=== PATIENT | male | born 2000 | race Caucasian/White ===

== ENCOUNTER 2020-12-26 19:28 | Emergency (ER) | payer OTHER ==
[2020-12-26] MEDS ORDERED: Ondansetron 4 MG Tab.DIS PO ONE (19:45)
[2020-12-26] MEDS ORDERED: Lactated Ringers 1,000 ML IV ONE (19:55)
[2020-12-26] MEDS ORDERED: Ketorolac 30 MG/ML SDV IVPUSH ONE (19:56)
--- NOTE | 2020-12-26 20:00 | EDM.PDOC ---
ED HPI GENERAL MEDICAL PROBLEM - General Chief Complaint: Gastrointestinal Problem Stated Complaint: VOMITING Time Seen by Provider: 12/26/20 19:45 Source of Information: Reports: Patient, RN. 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 Sx's began a couple hrs ago. Was sweating profusely in the heat today. Onset: Today, Gradual Onset Date: 12/26/20 Duration: Hour(s):, Getting Worse Location: Reports: Head, Generalized Quality: Reports: Ache (head) Severity: Moderate Improves with: Reports: None Worsens with: Reports: Other (time) Context: Reports: Other (environmental exposure) Associated Symptoms: Reports: Diaphoresis, Headaches, Nausea/Vomiting. 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 [Unable to Verify Home Med List] 12/26/20 [History] Past Medical History - Past Health History Medical/Surgical History: Denies Medical/Surgical History Social & Family History - Tobacco Use Tobacco Use Status *Q: Heavy Tobacco User Years of Tobacco use: 5 Packs/Tins Daily: 0.5 - Caffeine Use Caffeine Use: Reports: Soda - Recreational Drug Use Recreational Drug Use: No ED ROS GENERAL - Review of Systems Review Of Systems: See Below Constitutional: Reports: Malaise, Diaphoresis. Denies: Fever, Chills HEENT: Reports: No Symptoms Respiratory: Reports: No Symptoms Cardiovascular: Reports: Lightheadedness Endocrine: Reports: No Symptoms GI/Abdominal: Reports: Nausea, Vomiting. Denies: Diarrhea : Reports: No Symptoms Musculoskeletal: Reports: No Symptoms Skin: Reports: Diaphoresis Neurological: Reports: No Symptoms Psychiatric: Reports: No Symptoms ED EXAM, GI/ABD - Physical Exam Exam: See Below Exam Limited By: No Limitations General Appearance: Alert, WD/WN, No Apparent Distress Eyes: Right: Normal Appearance (Coloboma left pupil) Ears: Normal External Exam, Normal Canal, Hearing Grossly Normal, Normal TMs Nose: Normal Inspection, No Blood Throat/Mouth: Normal Inspection, Normal Lips, Normal Oropharynx, Normal Voice, No Airway Compromise Head: Atraumatic, Normocephalic Neck: Normal Inspection Respiratory/Chest: No Respiratory Distress, Lungs Clear, Normal Breath Sounds, No Accessory Muscle Use Cardiovascular: Regular Rate, Rhythm, No Edema GI/Abdominal Exam: Normal Bowel Sounds, Soft, Non-Tender, No Distention Back Exam: Normal Inspection Extremities: Normal Inspection Neurological: Alert, Oriented, CN II-XII Intact, Normal Cognition, No Motor/Sensory Deficits Psychiatric: Normal Affect, Normal Mood Skin Exam: Warm, Intact, Normal Color, No Rash, Diaphoretic. No: Dry Course - Vital Signs Last Recorded V/S: Last Vital Signs Temp 36.4 C 12/26/20 19:43 Pulse 72 12/26/20 19:43 Resp 20 12/26/20 19:43 BP 131/87 12/26/20 19:43 Pulse Ox 98 12/26/20 19:43 - Orders/Labs/Meds Orders: Active Orders 24 hr Category Date Time Status Lactated Ringers [Ringers, Lactated] 1,000 ml Med 12/26/20 19:55 Active IV BOLUS Medication Orders Lactated Ringer's (Ringers, Lactated) 1,000 mls @ 1,000 mls/hr IV BOLUS ONE Stop: 12/26/20 20:54 Last Admin: 12/26/20 20:08 Dose: 1,000 mls/hr Documented by: SHARYN Labs: Laboratory Tests 12/26/20 Range/Units 20:07 Sodium 140 (140-148) mmol/L Potassium 3.6 (3.6-5.2) mmol/L Chloride 102 (100-108) mmol/L Carbon Dioxide 29 (21-32) mmol/L Anion Gap 9.2 (5.0-14.0) mmol/L BUN 12 (7-18) mg/dL Creatinine 1.0 (0.8-1.3) mg/dL Est Cr Clr Drug Dosing 104.07 mL/min Estimated GFR (MDRD) > 60 (>60) Glucose 102 (74-106) mg/dL Calcium 7.9 L (8.5-10.1) mg/dL Meds: Medications Generic Name Dose Route Start Last Admin Trade Name Freq PRN Reason Stop Dose Admin Lactated Ringer's 1,000 mls @ 1,000 mls/hr 12/26/20 19:55 12/26/20 20:08 Ringers, Lactated IV 12/26/20 20:54 1,000 mls/hr BOLUS ONE Administration Discontinued Medications Generic Name Dose Route Start Last Admin Trade Name Tita PRN Reason Stop Dose Admin Ketorolac Tromethamine 30 mg 12/26/20 19:56 12/26/20 20:09 Ketorolac 30 Mg/Ml Sdv IVPUSH 12/26/20 19:57 30 mg ONETIME ONE Administration Ondansetron HCl 4 mg 12/26/20 19:45 12/26/20 19:56 Ondansetron 4 Mg Tab.Dis PO 12/26/20 19:46 4 mg ONETIME ONE Administration - Re-Assessments/Exams Free Text/Narrative Re-Assessment/Exam: 12/26/20 20:49 Is feeling much better after tx. Departure - Departure Time of Disposition: 21:00 Disposition: Home, Self-Care 01 Condition: Fair Clinical Impression: Heat exhaustion Qualifiers: Encounter type: initial encounter Qualified Code(s): T67.5XXA - Heat exhaustion, unspecified, initial encounter - Discharge Information *PRESCRIPTION DRUG MONITORING PROGRAM REVIEWED*: Not Applicable *COPY OF PRESCRIPTION DRUG MONITORING REPORT IN PATIENT DEMETRI: Not Applicable Instructions: Heat Exhaustion Referrals: PCP,None [Primary Care Provider] - Forms: ED Department Discharge Additional Instructions: Use Zofran as directed for nausea control. Rest. Supplement with sport drinks when exposed to prolonged heat. Take acetaminophen or ibuprofen for headache. Recheck as needed. Sepsis Event Note (ED) - Evaluation Sepsis Screening Result: No Definite Risk - Focused Exam Vital Signs: Vital Signs Temp Pulse Resp BP Pulse Ox 12/26/20 19:43 36.4 C 72 20 131/87 98 - My Orders Last 24 Hours: My Active Orders 12/26/20 19:55 Lactated Ringers [Ringers, Lactated] 1,000 ml IV BOLUS - Assessment/Plan Last 24 Hours: My Active Orders 12/26/20 19:55 Lactated Ringers [Ringers, Lactated] 1,000 ml IV BOLUS
== END 2020-12-26 21:12 | disposition home or self-care (01) ==
LOC: JP.ED 19:28
DX: T67.5XXA Heat exhaustion, unspecified, initial encounter (principal); Z72.0 Tobacco use
CPT/HCPCS: 36415; 80048; 96374; 99284; A9270; J1885; J7120